=== PATIENT | male | born 1940 | race Caucasian/White ===

== ENCOUNTER 2023-08-27 23:38 | Inpatient (IN) ==
[2023-08-28 00:44] LABS: INR 1.33 (0.83-1.13)
[2023-08-28 00:58] LABS: Hematocrit 19.1 % (38-53); Hemoglobin 6.2 g/dL (13.2-16.3); Mean Corpuscular Hemoglobin 31.2 pg (27-33); Mean Corpuscular Hgb Conc 32.3 g/dL (31-36); Mean Corpuscular Volume 96.6 fL (80-97); Mean Platelet Volume 7.2 fL (7.5-11.2); Platelet Count 216 10^3/uL (150-450); Red Blood Count 1.98 10^6/uL (4.06-5.63); Red Cell Distribution Width 15.7 % (12-17); White Blood Count 4.5 10^3/uL (3.6-10.2)
[2023-08-28 01:07] LABS: Albumin 2.9 g/dL (3.2-5.2); Albumin/Globulin Ratio 1.2 (1-3); Calcium 7.3 mg/dL (8.6-10.3); Creatinine, Serum 4.47 mg/dL (0.67-1.17); Globulin 2.4 g/dL (2-4); Total Bilirubin 0.7 mg/dL (0.2-1.0); Total Protein 5.3 g/dL (6.4-8.9); eGFR CKD-EPI 12.5 (>60)
[2023-08-28] MEDS ORDERED: NS 0.9% 1000 ml BAG 1,000 ML IV ONE (01:09)
[2023-08-28 01:56] LABS: High Sensitivity Troponin 1 Hr 45 pg/mL (<20)
[2023-08-28 02:19] LABS: ABS Lymphocytes 0.3 10^3/uL (1.0-4.8); ABS Monocytes 0.1 10^3/uL (0.0-1.1); ABS Neutrophils 4.1 10^3/uL (1.5-7.6); ABS Nucleated RBC 0.01 10^3/ul; Eosinophil % 0.7 %; Lymphocyte % 6.4 %; Nucleated Red Blood Cells % 0.1 %/100WBC (0.0-0.8)
[2023-08-28] MEDS ORDERED: Heparin 5000 UNITS/ML 1 mL VIAL SUBCUT SCH (06:00)
[2023-08-28] MEDS ORDERED: Furosemide 40 mg/4 ml IV VIAL IV ONE (06:04)
[2023-08-28] MEDS ORDERED: Albuterol/Ipratropium NEB.SOL (2.5/0.5 MG) 3 ML NEB.SOLN INH PRN (06:11)
[2023-08-28] MEDS: Mometasone/Formoter 100/5 MDI INH SCH ×2 (06:43→19:30)
[2023-08-28 06:55] LABS: High Sens Troponin Baseline 56 pg/mL (<20)
[2023-08-28 06:59] LABS: Urine Appearance Clear; Urine Bilirubin Negative (Negative); Urine Blood Negative (Negative); Urine Color Yellow; Urine Glucose Negative (Negative); Urine Ketones Negative (Negative); Urine Nitrite Negative (Negative); Urine Protein 2+(100 mg/dL) (Negative); Urine Specific Gravity 1.011 (1.002-1.030); Urine Urobilinogen Negative (Negative)
[2023-08-28 07:04] LABS: Urine Bacteria Absent (Absent); Urine Red Blood Cell Absent (Absent); Urine White Blood Cell Absent (Absent)
[2023-08-28 07:42] LABS: High Sensitivity Troponin 1 Hr 50 pg/mL (<20)
[2023-08-28 08:49] LABS: % Iron Saturation 10 % (15-55); .Transferrin 137 mg/dL (203-362); Iron < 20 ug/dL (50-212); Total Iron Binding Capacity 192 mcg/dL (250-450); Transferrin 137 mg/dL (203-362); Unsaturated Iron Binding 172 ug/dL
[2023-08-28] MEDS ORDERED: NS 0.9% IVPB ONE (12:00)
[2023-08-28] MEDS ORDERED: CEFTRIAXONE IVPB ONE (12:00)
[2023-08-28] MEDS ORDERED: IPRATROPIUM BR (NF)0.06% NASAL 1 SPRAY BTL BOTH NARES PRN (16:25)
[2023-08-28] MEDS ORDERED: Albuterol 2.5mg/3 ml (0.083%) NEB.SOLN INH PRN (16:25)
[2023-08-28] MEDS: cefTRIAXone 1 gm/50 mL D5W 1 GM/50 ML BAG IV SCH (16:30)
[2023-08-28] MEDS ORDERED: Albuterol/Ipratropium NEB.SOL (2.5/0.5 MG) 3 ML NEB.SOLN INH SCH ×2 (17:00→19:00)
[2023-08-28] MEDS: Albuterol/Ipratropium NEB.SOL (2.5/0.5 MG) 3 ML NEB.SOLN INH SCH (19:39)
[2023-08-28 19:53] LABS: Hematocrit 26.7 % (38-53); Hemoglobin 8.9 g/dL (13.2-16.3)
[2023-08-28] MEDS: Sodium Bicarb 650 mg (ANTACID) TAB PO SCH (20:49)
[2023-08-28] MEDS: Heparin 5000 UNITS/ML 1 mL VIAL SUBCUT SCH (20:50)
[2023-08-29] MEDS: Heparin 5000 UNITS/ML 1 mL VIAL SUBCUT SCH (07:43)
[2023-08-29] MEDS: Sodium Bicarb 650 mg (ANTACID) TAB PO SCH ×3 (07:44→21:49)
[2023-08-29] MEDS: Mometasone/Formoter 100/5 MDI INH SCH ×2 (07:50→20:16)
[2023-08-29] MEDS: Albuterol/Ipratropium NEB.SOL (2.5/0.5 MG) 3 ML NEB.SOLN INH SCH (07:52)
[2023-08-29] MEDS ORDERED: Albuterol/Ipratropium NEB.SOL (2.5/0.5 MG) 3 ML NEB.SOLN INH PRN (07:52)
[2023-08-29 08:15] LABS: ABS Lymphocytes 0.3 10^3/uL (1.0-4.8); ABS Monocytes 0.4 10^3/uL (0.0-1.1); ABS Neutrophils 5.8 10^3/uL (1.5-7.6); ABS Nucleated RBC 0.01 10^3/ul; Eosinophil % 0.1 %; Hematocrit 24.1 % (38-53); Hemoglobin 8.1 g/dL (13.2-16.3); Lymphocyte % 5.1 %; Mean Corpuscular Hemoglobin 31.4 pg (27-33); Mean Corpuscular Hgb Conc 33.4 g/dL (31-36); Mean Corpuscular Volume 93.9 fL (80-97); Mean Platelet Volume 7.4 fL (7.5-11.2); Nucleated Red Blood Cells % 0.1 %/100WBC (0.0-0.8); Platelet Count 237 10^3/uL (150-450); Red Blood Count 2.57 10^6/uL (4.06-5.63); Red Cell Distribution Width 15.5 % (12-17); White Blood Count 6.5 10^3/uL (3.6-10.2)
[2023-08-29 08:18] LABS: Activated Partial Thrombo Time 30.6 seconds (26.0-38.0); INR 1.39 (0.83-1.13)
[2023-08-29 08:43] LABS: Albumin/Globulin Ratio 1.2 (1-3); Calcium 7.6 mg/dL (8.6-10.3); Creatinine, Serum 4.45 mg/dL (0.67-1.17); Globulin 2.6 g/dL (2-4); HDL Cholesterol 33.6 mg/dL; Potassium 3.8 mmol/L (3.5-5.0); Total Bilirubin 0.4 mg/dL (0.2-1.0); Total Protein 5.6 g/dL (6.4-8.9); eGFR CKD-EPI 12.6 (>60)
[2023-08-29] MEDS: cefTRIAXone 1 gm/50 mL D5W 1 GM/50 ML BAG IV SCH (14:07)
[2023-08-29] MEDS: Pantoprazole VIAL 40 MG VIAL IV SCH (21:52)
[2023-08-30 05:56] LABS: Hematocrit 23.8 % (38-53); Hemoglobin 7.7 g/dL (13.2-16.3); Mean Corpuscular Hemoglobin 30.9 pg (27-33); Mean Corpuscular Hgb Conc 32.4 g/dL (31-36); Mean Corpuscular Volume 95.2 fL (80-97); Mean Platelet Volume 7.7 fL (7.5-11.2); Platelet Count 215 10^3/uL (150-450); Red Blood Count 2.49 10^6/uL (4.06-5.63); Red Cell Distribution Width 15.6 % (12-17)
[2023-08-30 06:31] LABS: Calcium 7.2 mg/dL (8.6-10.3); Creatinine, Serum 3.99 mg/dL (0.67-1.17); Potassium 3.8 mmol/L (3.5-5.0); eGFR CKD-EPI 14.4 (>60)
[2023-08-30] MEDS: Mometasone/Formoter 100/5 MDI INH SCH ×2 (07:18→19:12)
[2023-08-30] MEDS: Pantoprazole VIAL 40 MG VIAL IV SCH ×2 (08:45→20:08)
[2023-08-30] MEDS: Sodium Bicarb 650 mg (ANTACID) TAB PO SCH ×3 (08:48→20:03)
[2023-08-30] MEDS: cefTRIAXone 1 gm/50 mL D5W 1 GM/50 ML BAG IV SCH (14:54)
[2023-08-31 06:57] LABS: Hematocrit 23.8 % (38-53); Hemoglobin 7.9 g/dL (13.2-16.3); Mean Corpuscular Hemoglobin 31.2 pg (27-33); Mean Corpuscular Hgb Conc 33.2 g/dL (31-36); Mean Corpuscular Volume 93.9 fL (80-97); Mean Platelet Volume 7.6 fL (7.5-11.2); Platelet Count 219 10^3/uL (150-450); Red Blood Count 2.53 10^6/uL (4.06-5.63); Red Cell Distribution Width 15.3 % (12-17); White Blood Count 6.7 10^3/uL (3.6-10.2)
[2023-08-31 07:12] LABS: Creatinine, Serum 4.07 mg/dL (0.67-1.17); Potassium 3.7 mmol/L (3.5-5.0)
[2023-08-31] MEDS: Mometasone/Formoter 100/5 MDI INH SCH (07:38)
[2023-08-31] MEDS: Sodium Bicarb 650 mg (ANTACID) TAB PO SCH ×2 (08:45→12:48)
[2023-08-31] MEDS: Pantoprazole VIAL 40 MG VIAL IV SCH (08:46)
[2023-08-31 09:34] VITALS: BP 141/72
[2023-08-31] MEDS ORDERED: Ferric Gluconate IV 250 MG in NS 0.9% 250 ml 200 ML IVPB SCH (11:00)
== END 2023-08-31 14:47 | disposition home or self-care (01) | DRG 871 ==
LOC: ED 23:38 → EDHOLD 23:38 → MED 08-28 05:49 → SUATTDRO 08-28 05:49 → MED 08-28 06:34
PROVIDERS: ADMIT Internal Medicine; ATTEND Student in an Organized Health Care Education/Training Program